=== PATIENT | male | born 1960 | race Caucasian/White ===

== ENCOUNTER 2019-01-09 11:43 | Day surgery (SDC) | payer BC ==
[~2019-01-09] VITALS: Ht 170.2 cm; Wt 74.0 kg
[~2019-01-09 11:43] MED LIST: MELO7.5 PO
[2019-01-09] MEDS ORDERED: Cardiovid Plus1 EACH (12:05)
== END 2019-01-09 13:52 | disposition home or self-care (01) ==
LOC: ORSCSDS 11:43
PROVIDERS: Internal Medicine Gastroenterology
PROC: 0DB58ZX Excision of Esophagus, Via Natural or Artificial Opening Endoscopic, Diagnostic (ICD-10-PCS; principal; 2019-01-09 13:00)
PROC: 0DB68ZX Excision of Stomach, Via Natural or Artificial Opening Endoscopic, Diagnostic (ICD-10-PCS; principal; 2019-01-09 13:00)
DX: R13.10 Dysphagia, unspecified (principal); K20.0 Eosinophilic esophagitis; K29.80 Duodenitis without bleeding; K29.70 Gastritis, unspecified, without bleeding
CPT/HCPCS: 88305; 88342; J2704; J7120